=== PATIENT | female | born 1930 | race Caucasian/White ===

== ENCOUNTER 2017-08-21 13:23 | Emergency (ER) | payer MEDICARE ==
[2017-08-21 14:23] LABS: #Eosinphils 0.2 thou/uL (0.0-0.7); #Lymphocytes 1.9 thou/uL (1.20-3.40); #Neutrophils 8.5 thou/uL (1.40-6.50); %Basophils 0.4 % (0.0-1.0); %Eosinophils 1.7 % (0.0-10.0); %Lymphocytes 16.5 % (21.0-51.0); %Monocytes 8.4 % (0.0-10.0); %Neutrophils 73.1 % (42.0-75.0); Hemoglobin 13.4 g/dL (12.0-16.0); Mean Corpuscular HGB CONC 33.6 g/dL (32.0-36.0); Mean Corpuscular Hemoglobin 33.4 pg (27.0-31.0); Mean Corpuscular Volume 99.3 fl (81.0-99.0); Mean Platelet Volume 6.9 fL (7.4-10.4); Platelet Count 305 thou/uL (130-400); RBC Distribution Width 11.3 % (11.5-14.5); White Blood Cell (WBC) Count 11.6 thou/uL (4.8-10.8)
--- NOTE | 2017-08-21 14:43 | RAD ---
FRONTAL VIEW CHEST: Date: 08-21-17 Comparison: 10-07-08 Indication: Dyspnea. FINDINGS: There is mild enlargement of the cardiac silhouette. Blunting of the left costophrenic sulcus and ple ural based density may relate to minimal pleural fluid versus pleural thickening. There is mild patch y right basilar density. The lungs are hyperinflated. Vascular calcification and osseous degenerative change is present. IMPRESSION: 1. Patchy bibasilar opacities. The possibility of mild left pleural fluid not excluded. 2. Prominent cardiac silhouette which may relate to CHF. Correlate clinically. POS: HELLEN
[2017-08-21 14:48] LABS: ALT (SGPT) 12 U/L (8-55); AST (SGOT) 31 U/L (5-34); Albumin 3.3 g/dL (3.4-4.8); Alkaline Phosphatase 74 U/L (40-150); Anion Gap 15 mmol/L (10-20); BUN (Urea Nitrogen) 17 mg/dL (9.8-20.1); Bilirubin, Total 0.7 mg/dL (0.2-1.2); CK (CPK) 29 U/L (29-168); Calc. Creatinine Clearance 0 mL/min (70-130); Calcium 9.1 mg/dL (7.8-10.44); Carbon Dioxide 20 mmol/L (23-31); Chloride 105 mmol/L (98-107); Estimated GFR-MDRD 83; Glucose 99 mg/dL (83-110); Lipase 6 U/L (8-78); Potassium 4.2 mmol/L (3.5-5.1); Protein, Total 7.3 g/dL (6.0-8.3); Sodium 136 mmol/L (136-145)
[2017-08-21 14:49] LABS: CKMB 0.3 ng/mL (0-6.6)
[2017-08-21 16:15] LABS: Bilirubin Small (Negative); Blood, Urine Large (Negative); Clarity CLEAR (Clear); Glucose, Urine (Dipstick) Negative (Negative); Leukocyte Small (Negative); Nitrite Negative (Negative); Protein, Urine (Dipstick) Trace mg/dL (Neg-Trace); Specific Gravity, Urine 1.021 (1.002-1.036)
[2017-08-21 16:16] LABS: Bacteria/HPF None Seen HPF (None Seen); Hyaline Casts/LPF 0-3 HYALINE CAST LPF (0-3 Hyaline); Pathc Cast-AUWi Flag 0.67 (0-2.49); RBC/HPF 21-50 HPF (0-3); Squamous Epithelial 0-3 HPF (0-3)
--- NOTE | 2017-08-23 13:06 | EKG ---
Test Reason : SOB Blood Pressure : / mmHG Vent. Rate : 072 BPM Atrial Rate : 072 BPM P-R Int : 222 ms QRS Dur : 082 ms QT Int : 400 ms P-R-T Axes : 048 -18 -03 degrees QTc Int : 438 ms Sinus rhythm with 1st degree A-V block Minimal voltage criteria for LVH, may be normal variant Anterior infarct , age undetermined Abnormal ECG Confirmed by LISA MEJIA, RICARDO ([id number]), desk editor LAURA HENAO ([id number]) on 08/23/2017 1:05:32 PM Referred By: Confirmed By:RICARDO GONZALEZ MD
== END 2017-08-21 16:48 | disposition home or self-care (01) ==
LOC: ERS 13:23
DX: J20.9 Acute bronchitis, unspecified (principal); R53.1 Weakness; H66.91 Otitis media, unspecified, right ear; R42 Dizziness and giddiness; E03.9 Hypothyroidism, unspecified; E78.00 Pure hypercholesterolemia, unspecified; I10 Essential (primary) hypertension; Z87.442 Personal history of urinary calculi
CPT/HCPCS: 36415; 71045; 80053; 81003; 81015; 82553; 83605; 83690; 83880; 84484; 85025; 87040; 93005; 94760; 96360